=== PATIENT | female | born 1945 | race Caucasian/White ===

== ENCOUNTER → 2016-09-25 | Outpatient (CLI) | payer MEDICARE ==
[~2016-09-25] MED LIST: LIDOCAINE 1% MDV 20ML VIAL As Ordered ONE
--- NOTE | 2016-09-25 14:49 | REP ---
SPECIMEN RADIOGRAPHY LEFT BREAST. HISTORY: Microcalcifications left breast on mammography from September 04, 2016 at [facility]. Patient undergoing stereotactic needle biopsy procedure. FINDINGS: Specimen radiography demonstrates the microcalcific cluster in one of the removed specimens. IMPRESSION: Specimen number 1 of six contains the microcalcific grouping. Signed by Christiano Murillo MD 09/25/2016 04:47 P
--- NOTE | 2016-09-25 15:05 | REP ---
Digital diagnostic unilateral left breast mammography with CAD: History: Marker clip placement views post needle biopsy. Comparison mammography September 04, 2016. Findings: Craniocaudad and true ML views of the left breast demonstrate the needle biopsy marker clip in good position at the site of the targeted microcalcific grouping. The microcalcifications are no longer present. Impression: Marker clip in good position post biopsy. The microcalcifications have been removed. Signed by Christiano Murillo MD 09/25/2016 04:47 P
--- NOTE | 2016-09-25 15:23 | REP ---
STEREOTACTIC LEFT BREAST BIOPSY: The procedure was performed under the direct supervision of Dr. Murillo. The patient has a history of clustered microcalcifications in the upper left breast seen on a previous mammogram from [facility] performed on 09/04/2016. The risks and benefits of the procedure were explained to the patient and informed consent was obtained. A lateral medial approach was utilized. The calcifications were localized using stereotactic mammographic guidance. The skin was prepped and draped in a sterile fashion. 1% Xylocaine was used as a local anesthetic. A 10-gauge suction assisted Mammotome needle was inserted and six core biopsy samples were obtained. Specimen radiograph demonstrates the presence of calcifications to be within the specimen. A marker clip was placed at the biopsy site. The patient tolerated the procedure well and there were no immediate complications. After the appropriate amount of monitored convalescence the patient was discharged from the department. Reviewed by TOYIN Ch 09/25/2016 03:35 PEdited and Signed by Christiano Murillo MD 09/25/2016 05:00 P
== END ==
LOC: M RADPRO 12:17
DX: R92.0 Mammographic microcalcification found on diagnostic imaging of breast (principal); D24.2 Benign neoplasm of left breast

== ENCOUNTER 2017-10-18 10:21 | Day surgery (SDC) | payer MEDICARE ==
[2017-10-18] MEDS ORDERED: NS 1,000 ML IV (10:45)
[2017-10-18] MEDS ORDERED: PROPOFOL 200 MG/20 ML VIAL As Ordered (11:10)
[2017-10-18] MEDS ORDERED: LIDOCAINE 2% INJ 100 MG/5 ML SDV (FOR ANES.) As Ordered (11:10)
== END 2017-10-18 12:20 | disposition home or self-care (01) ==
LOC: M OPP 10:21
DX: R19.5 Other fecal abnormalities (principal); D12.5 Benign neoplasm of sigmoid colon; K55.20 Angiodysplasia of colon without hemorrhage; K64.0 First degree hemorrhoids; K57.30 Diverticulosis of large intestine without perforation or abscess without bleeding; I12.9 Hypertensive chronic kidney disease with stage 1 through stage 4 chronic kidney disease, or unspecified chronic kidney disease; E78.5 Hyperlipidemia, unspecified; R60.0 Localized edema; E11.9 Type 2 diabetes mellitus without complications; M10.9 Gout, unspecified; E03.9 Hypothyroidism, unspecified; R06.02 Shortness of breath; Z78.0 Asymptomatic menopausal state; R06.83 Snoring; N18.9 Chronic kidney disease, unspecified; Z88.8 Allergy status to other drugs, medicaments and biological substances; Z79.84 Long term (current) use of oral hypoglycemic drugs; Z79.899 Other long term (current) drug therapy; Z80.3 Family history of malignant neoplasm of breast; Z80.8 Family history of malignant neoplasm of other organs or systems
CPT/HCPCS: 45385

== ENCOUNTER → 2021-10-24 | Outpatient (CLI) | payer MEDICARE ==
[~2021-10-24] MED LIST changes: +FURO20TA2 PO; +LATA0.0013 OU; +LEVO75TA4 PO; -LIDOCAINE 1% MDV 20ML VIAL As Ordered ONE; +LISI20TA33 PO; +METF500T13 PO; +ZYLO300T6 PO
== END ==
LOC: M LABSMTC 09:42
PROVIDERS: ATTEND Anesthesiology
DX: Z01.812 Encounter for preprocedural laboratory examination (principal); Z20.822 Contact with and (suspected) exposure to COVID-19

== ENCOUNTER 2021-10-29 12:12 | Day surgery (SDC) | payer MEDICARE ==
[~2021-10-29] VITALS: Ht 152.4 cm; Wt 84.8 kg
[~2021-10-29 12:12] MED LIST changes: +ALLO10TA PO; +MYRB25TA PO; +NS 1,000 ML IV ONE; +PRAV80TA2 PO; +XALA0.007 OU
[2021-10-29] MEDS ORDERED: propofoL 200 MG/20 ML VIAL As Ordered ONE (14:03)
[2021-10-29] MEDS ORDERED: LIDOCAINE 2% 100MG/5ML SDV (FOR ANES.) As Ordered ONE (14:05)
[2021-10-29 15:00] VITALS: BP 189/83
== END 2021-10-29 15:11 | disposition home or self-care (01) ==
LOC: M OPP 12:12
PROVIDERS: ATTEND Internal Medicine Gastroenterology
DX: R13.10 Dysphagia, unspecified (principal); E11.9 Type 2 diabetes mellitus without complications; E03.9 Hypothyroidism, unspecified; Z79.899 Other long term (current) drug therapy

== ENCOUNTER → 2024-07-13 | Outpatient (REF) | payer MEDICARE, MEDICAID ==
[~2024-07-13] MED LIST changes: -NS 1,000 ML IV ONE
[2024-07-13 14:04] LABS: RSV AMPLIFICATION NEGATIVE (NEGATIVE)
== END ==
LOC: M LAB REF 12:36
PROVIDERS: ATTEND Nurse Practitioner Adult Health
DX: R05.9 Cough, unspecified (principal)